=== PATIENT | male | born 1980 | race African-American/Black ===

== ENCOUNTER 2016-08-03 13:59 | Emergency (ER) | payer BC ==
[2016-08-03] MEDS ORDERED: Ketorolac Tromethamine 60 MG/2 ML VIAL ONE (14:21)
[2016-08-03] MEDS ORDERED: Diazepam 10 MG/2 ML SYRINGE ONE (14:22)
== END 2016-08-03 14:47 | disposition home or self-care (01) ==
LOC: BURERS 13:59
DX: M25.551 Pain in right hip (principal)
CPT/HCPCS: 96372; J1885; J3360